=== PATIENT | male | born 1965 | race Two or more races ===

== ENCOUNTER 2022-05-24 17:02 | Emergency (ER) | payer MEDICAID ==
[~2022-05-24] VITALS: Ht 165.1 cm; Wt 66.0 kg
[2022-05-24] MEDS ORDERED: HYDROCODONE/ACETAMINOPHEN 10/325MG TABLET PO ONE (18:30)
[2022-05-24 19:12] VITALS: BP 146/50
[2022-05-24] MEDS ORDERED: TOPUD MT (19:29)
[2022-05-24] MEDS ORDERED: IBUP-2029 MT (19:29)
== END 2022-05-24 20:22 | disposition home or self-care (01) ==
LOC: ER 17:02
DX: S00.83XA Contusion of other part of head, initial encounter (principal); S09.8XXA Other specified injuries of head, initial encounter; S40.011A Contusion of right shoulder, initial encounter; Y08.89XA Assault by other specified means, initial encounter; Y93.9 Activity, unspecified; Y92.9 Unspecified place or not applicable
CPT/HCPCS: 70486; 73000; 73030; 99284